=== PATIENT | male | born 1970 | race Caucasian/White ===

== ENCOUNTER 2021-11-05 12:19 | Emergency (ER) | payer SELFPAY ==
[~2021-11-05] VITALS: Ht 167.6 cm; Wt 94.8 kg
[2021-11-05 12:29] VITALS: BP 148/94
--- NOTE | 2021-11-05 12:32 | NUR ---
PT SENT TO LOBBY TO WAIT
--- NOTE | 2021-11-05 12:58 | NUR ---
COVID AND FLU SWABS COLLECTED AND WALKED TO LAB
--- NOTE | 2021-11-05 14:11 | NUR ---
C/O FEVER, CHILLS AND BODY ACHES X 2 DAYS. TOOK AT HOME COVID TEST THAT WAS NEGATIVE. WOKE UP SWEATING THIS MORNING. PT THINKS HE MIGHT HAVE A KIDNEY INFECTION. 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 A&OX4, SKIN INTACT, STEADY GAIT AND VITALS WNL FOR PT. TK DRUMMONDM
[2021-11-05] MEDS ORDERED: IBUPROFEN 600 MG TAB ONE (14:20)
[2021-11-05] MEDS ORDERED: IBUPROFEN 600 MG TAB PO ONE (14:20)
[2021-11-05] MEDS ORDERED: CEPH500C16 PO (15:21)
[2021-11-05] MEDS ORDERED: IBUP-2213 PO (15:21)
[2021-11-05 15:45] VITALS: BP 140/92
--- NOTE | 2021-11-05 15:45 | NUR ---
Patient discharged with v/s stable. Written and verbal after care instructions given and explained. Patient alert, oriented and verbalized understanding of instructions. Ambulatory with steady gait. All questions addressed prior to discharge. ID band removed. Patient advised to follow up with PMD. Rx of KEFLEX AND IBUPROFEN given. Patient educated on indication of medication including possible reaction and side effects. Opportunity to ask questions provided and answered.
== END 2021-11-05 15:45 | disposition home or self-care (01) ==
LOC: MED 12:19
DX: N12 Tubulo-interstitial nephritis, not specified as acute or chronic (principal); Z20.822 Contact with and (suspected) exposure to COVID-19; M79.10 Myalgia, unspecified site; M54.9 Dorsalgia, unspecified; Z79.899 Other long term (current) drug therapy
CPT/HCPCS: 81002; 99283